=== PATIENT | female | born 1995 | race Caucasian/White ===

== ENCOUNTER 2025-01-04 12:19 | Outpatient (CLI) | payer OTHER | END 2025-01-04 13:08 | disposition home or self-care (01) | LOC: NST 12:19 | PROVIDERS: ATTEND Obstetrics & Gynecology Gynecology | DX: Z34.83 Encounter for supervision of other normal pregnancy, third trimester (principal) ==

== ENCOUNTER 2025-01-11 12:53 | Inpatient (IN) | payer OTHER ==
[~2025-01-11] VITALS: Ht 157.5 cm; Wt 3.6 kg
[2025-01-15 23:43] VITALS: BP 128/74
[2025-01-16] MEDS ORDERED: PRENATAL TABLE1 EAC1 PO (00:41)
[2025-01-16] MEDS ORDERED: MAGNESIUM200 MG PO (00:42)
[2025-01-16] MEDS ORDERED: SULFAMETHOXAZO1 EACH PO (00:44)
[2025-01-16] MEDS ORDERED: RINGERS SOLUTION,LACTATED 1,000 ML IV SCH (00:45)
[2025-01-16] MEDS ORDERED: MORPHINE SULFATE 4 MG/ML CARTRIDGE IV ONE (01:45)
[2025-01-16 01:47] VITALS: BP 137/83
[2025-01-16 02:10] LABS: BASO % 0.3 % (0.1-1.2); EOS # 0.02 (0.04-0.54); EOS % 0.2 % (0.7-7.0); HEMATOCRIT 31.4 % (34.1-44.9); HEMOGLOBIN 10.7 g/dL (11.2-15.7); LYMPH # 1.79 (1.18-3.74); LYMPH % 18.3 % (19.3-53.1); MEAN CORPUSCULAR HEMOGLOBIN 30.1 pg (25.6-32.2); MONO # 0.54 (0.24-0.82); MONO % 5.5 % (4.7-12.5); NEUT # 7.26 (1.56-6.13); NEUT % 74.5 % (34.0-71.1); PLATELET COUNT 186 K/uL (163-369); RED BLOOD COUNT 3.55 M/uL (3.93-5.22); RED CELL DISTRIBUTION WIDTH 13.4 % (11.6-14.4)
[2025-01-16 02:26] LABS: INR < 0.93; PARTIAL THROMBOPLASTIN TIME 26.5 SECONDS (22.0-34.0); PROTHROMBIN TIME 9.7 SECONDS (9.0-11.5)
[2025-01-16 02:30] LABS: ALBUMIN 2.7 gm/dL (3.4-5.0); BILIRUBIN TOTAL 0.42 mg/dL (0.3-1.2); CALCIUM 9.2 mg/dL (8.5-10.1); CREATININE SERUM 0.71 mg/dL (0.55-1.02); GFR 98.02; GLOBULINA 3.5 G/DL (2.4-3.5); POTASSIUM 3.76 mEq/L (3.5-5.1); TOTAL PROTEIN 6.2 gm/dL (6.4-8.2)
[2025-01-16 03:16] VITALS: BP 121/69; O2SAT 100
[2025-01-16] MEDS ORDERED: ERYTHROMYCIN BASE OPHT 1GM EACH TUBE OP ONE ×2 (06:24→12:01)
[2025-01-16] MEDS ORDERED: CHLORHEXIDINE GLUCONATE 120 ML BOTTLE TOP ONE (06:25)
[2025-01-16] MEDS ORDERED: LIDOCAINE HCL 1% 10ML VIAL ONE (06:25)
[2025-01-16] MEDS ORDERED: OXYTOCIN 20 UNITS/1000ML RL PIGGYBAG IV ONE (06:25)
[2025-01-16] MEDS ORDERED: MORPHINE SULFATE 4 MG/ML VIAL IV STA (07:08)
[2025-01-16 07:24] VITALS: BP 144/81
[2025-01-16] MEDS ORDERED: OXYTOCIN 20 UNITS/500ML RL PIGGYBAG IV ONE (10:12)
[2025-01-16] MEDS ORDERED: OXYTOCIN 500 ML IV SCH (10:30)
[2025-01-16] MEDS ORDERED: CEFAZOLIN SODIUM 1,000 MG VIAL IV ONE (12:00)
[2025-01-16] MEDS ORDERED: CITRIC ACID/SODIUM CITRATE 30 ML BLIST.PACK PO NR (12:00)
[2025-01-16] MEDS ORDERED: OXYTOCIN 10 UNITS/ML VIAL ONE ×2 (12:01→16:13)
[2025-01-16] MEDS ORDERED: KETOROLAC TROMETHAMINE 30 MG VIAL ONE (14:49)
[2025-01-16] MEDS ORDERED: LABETALOL HCL 100 MG/20 ML ML ONE (14:53)
[2025-01-16] MEDS ORDERED: KETOROLAC TROMETHAMINE 30 MG VIAL IV SCH (15:19)
[2025-01-16] MEDS ORDERED: OXYTOCIN 1,000 ML IV ONE (15:30)
[2025-01-16] MEDS ORDERED: LABETALOL HCL 100 MG/20 ML ML IV NR (15:40)
[2025-01-16] MEDS ORDERED: MORPHINE SULFATE 4 MG/ML CARTRIDGE IV SCH (17:00)
[2025-01-16] MEDS ORDERED: AZITHROMYCIN 500 MG VIAL IV NR (17:00)
[2025-01-16] MEDS ORDERED: DOCUSATE SODIUM 100MG CAP PO SCH (17:00)
[2025-01-16 17:18] VITALS: BP 145/76
[2025-01-16] MEDS ORDERED: NIFEDIPINE 30 MG TAB.SA.OSM PO SCH (20:45)
[2025-01-17] VITALS: BP 134/84
[2025-01-17] MEDS ORDERED: ACETAMINOPHEN 500 MG GEL..CAP PO SCH (06:00)
[2025-01-17 06:13] LABS: BASO % 0.2 % (0.1-1.2); EOS # 0.01 (0.04-0.54); EOS % 0.1 % (0.7-7.0); HEMATOCRIT 31.9 % (34.1-44.9); HEMOGLOBIN 10.9 g/dL (11.2-15.7); LYMPH # 1.59 (1.18-3.74); LYMPH % 12.2 % (19.3-53.1); MEAN CORPUSCULAR HEMOGLOBIN 29.7 pg (25.6-32.2); MONO # 0.78 (0.24-0.82); NEUT # 10.45 (1.56-6.13); NEUT % 80.5 % (34.0-71.1); PLATELET COUNT 171 K/uL (163-369); RED BLOOD COUNT 3.67 M/uL (3.93-5.22); RED CELL DISTRIBUTION WIDTH 13.3 % (11.6-14.4)
[2025-01-17] MEDS ORDERED: KETOROLAC TROMETHAMINE 10 MG TABLET PO SCH (07:45)
[2025-01-17] MEDS ORDERED: OxyCODONE HCL 5 MG TABLET (ROXICODONE) PO SCH (08:00)
[2025-01-17] MEDS ORDERED: GABAPENTIN 300 MG CAPSULE PO SCH (09:00)
[2025-01-17] MEDS ORDERED: PNV,CALCIUM 72/IRON/FOLIC ACID 1 TAB TABLET PO SCH (09:00)
[2025-01-17] MEDS ORDERED: SIMETHICONE 125 MG CAPSULE PO SCH (09:00)
[2025-01-17 09:06] VITALS: BP 147/80
[2025-01-17] MEDS ORDERED: OXYTOCIN 10 UNITS/ML VIAL IV ONE (11:45)
[2025-01-17] MEDS ORDERED: IBUprofen 600 MG TABLET PO SCH (12:00)
[2025-01-17] MEDS ORDERED: ERYTHROMYCIN BASE OPHT 1GM EACH TUBE OP ONE (12:00)
[2025-01-17 13:40] VITALS: BP 129/79
[2025-01-17 16:15] VITALS: BP 108/70
[2025-01-17 21:13] VITALS: BP 129/88
[2025-01-18 00:56] VITALS: BP 117/77
[2025-01-18] MEDS ORDERED: KETO10TA2 PO (07:52)
[2025-01-18] MEDS ORDERED: PERCOCET 5-3251 EACH PO (07:53)
[2025-01-18 08:00] VITALS: BP 131/80
== END 2025-01-18 11:25 | disposition home or self-care (01) | DRG 788 ==
LOC: OB/GYN 01-16 00:30 → LDR 01-16 00:30 → OB/GYN 01-16 12:29 → LDR 01-27 12:52
PROVIDERS: Obstetrics & Gynecology Maternal & Fetal Medicine; ADMIT Obstetrics & Gynecology Gynecology; ATTEND Obstetrics & Gynecology Gynecology
PROC: 4A1HXCZ Monitoring of Products of Conception, Cardiac Rate, External Approach (ICD-10-PCS; 2025-01-16)
PROC: 10D00Z1 Extraction of Products of Conception, Low, Open Approach (ICD-10-PCS; principal; 2025-01-16 13:30)
DX: O82 Encounter for cesarean delivery without indication (principal); O62.1 Secondary uterine inertia; O64.0XX0 Obstructed labor due to incomplete rotation of fetal head, not applicable or unspecified; Z3A.38 38 weeks gestation of pregnancy; Z37.0 Single live birth